=== PATIENT | female | born 1940 | race American Indian/Alaskan Native ===

== ENCOUNTER 2018-01-27 06:06 | Day surgery (SDC) | payer MEDICARE, OTHER ==
[2018-01-12 09:25] VITALS: BMI 30.7
[2018-01-27] MEDS ORDERED: ceFAZolin IV 1 gm in Dextrose 1 GM/50 ML BAG IVPB ONE ×2 (07:05→08:48)
[2018-01-27] MEDS ORDERED: EPINEPHrine 1:1000 Nasal Sol(30mL) ONE (07:05)
[2018-01-27] MEDS ORDERED: Lidocaine/Epinephrine 1% 1:100000 10 ML IJ ONE (07:05)
[2018-01-27] MEDS ORDERED: Acetaminophen-Codeine 300/30 mg Tab PO PRN (08:12)
[2018-01-27] MEDS ORDERED: Dextrose 5%/0.45% NS 1,000 ML IV SCH (08:15)
[2018-01-27] MEDS ORDERED: Rocuronium 10 mg/ml (5 ml) ONE (08:40)
[2018-01-27] MEDS ORDERED: Propofol 10 mg/ml Inj (20 ML) ONE (08:40)
[2018-01-27] MEDS ORDERED: Midazolam 2 MG/2 ML VIAL ONE (08:40)
[2018-01-27] MEDS ORDERED: HYDROmorphone 0.5 mg/0.5 ml ISec IVP PRN (09:08)
[2018-01-27] MEDS ORDERED: Neostigmine Methylsulfate 3mg/3ml Syringe IV ONE (10:26)
[2018-01-27 12:28] VITALS: BP 142/70; PULSE 89; RESP 18; TEMP 97.4; O2SAT 98
--- NOTE | 2018-01-27 20:08 | OP ---
PROCEDURE DATE: 01/27/2018 PREOPERATIVE DIAGNOSIS: Nasal polyposis, sinusitis. POSTOPERATIVE DIAGNOSIS: Nasal polyposis, sinusitis. 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 PROCEDURE: The patient was brought into the room and placed in supine position. Anesthesia was initiated through an ET tube. Adrenaline-soaked pledgets were inserted into the nasal cavity. They remained there for 5 minutes and then were removed. Navigation was set up and used throughout the case in order to ensure that the skull base and orbit were not entered. The patient was draped in the usual manner. A 0-degree scope was inserted in the nasal cavity. Polyps were noted emanating from the middle meatus. A debrider was used to debride the polyps after they were injected with lidocaine with epinephrine. Any polyps medial to the middle turbinate were also removed. The middle turbinate was medialized. The uncinate process was medialized using a [place] elevator and removed using forceps. A debrider was used to enter the ethmoid bulla inferomedially, going posteriorly to the basal lamella, then anterior and superiorly until the ethmoid bulla was removed. The basal lamella was entered. Posterior ethmoid sinuses were entered and opened. Skull base was identified and followed anteriorly all the way to the area of the anterior ethmoid air cells. Next, a curved suction hooked up to navigation was used to locate the maxillary antrum which was noted to be stenosed and opened using forceps. The frontal recess was noted to be stenosed and opened using forceps. The sphenoid antrum was noted to be stenosed and opened using forceps. Bleeding was controlled using suction cautery and adrenaline-soaked pledgets. Attention was turned to the other side. Polyps emanating from the middle meatus were injected with lidocaine with epinephrine and removed using a debrider. The middle turbinate was medialized after the polyps medial to middle turbinate were removed using a debrider. The uncinate process was medialized using a [place] elevator and removed using forceps. A debrider was used to enter the ethmoid bulla inferomedially, going posteriorly to the basal lamella, then anterior and superiorly until the ethmoid bulla was removed. The basal lamella was entered. The posterior ethmoid cells were entered and opened. Skull base was identified and followed anteriorly all the way to the area anterior to the ethmoid air cells. Frontal recess was noted to be stenosed and opened using forceps. The maxillary antrum was noted to be stenosed and opened using forceps. The sphenoid antrum was noted to be stenosed and opened using forceps. Bleeding was controlled using suction cautery and adrenaline-soaked pledgets. FloSeal was placed on both sides and then stents were placed. The patient was taken off anesthesia and taken to the recovery room in stable manner. Artemio Clark MD [facility] # [id number]
== END 2018-01-27 15:05 | disposition home or self-care (01) ==
LOC: C.SDS 06:06
PROVIDERS: ATTEND Otolaryngology
DX: J32.0 Chronic maxillary sinusitis (principal); J32.1 Chronic frontal sinusitis; J32.2 Chronic ethmoidal sinusitis; J32.3 Chronic sphenoidal sinusitis
CPT/HCPCS: 31237; 31254; 31267; 31288; 88304; C2615; J0690; J1170; J2250; J2405; J2704; J2710; J3010

== ENCOUNTER 2018-05-19 09:36 | Outpatient (CLI) | payer MEDICARE, OTHER | END 2018-05-19 09:37 | disposition home or self-care (01) | LOC: C.DEXAIC 09:37 ==